=== PATIENT | female | born 1965 | race Caucasian/White ===

== ENCOUNTER 2019-12-21 13:04 | Observation (INO) ==
[2019-12-21] MEDS ORDERED: Ketorolac 30 MG/ML VIAL IVP ONE (13:34)
[2019-12-21] MEDS ORDERED: Ipratropium/Albuterol Neb 3 ML IH ONE (13:36)
[2019-12-21] MEDS ORDERED: cefTRIAXone 1,000 MG in 0.9 % Sodium Chloride Mini Bag 100 ML IVPB ONE (13:43)
[2019-12-21] MEDS ORDERED: Azithromycin 500 MG in 0.9 % Sodium Chloride 250 ML IVPB ONE (13:43)
[2019-12-21 14:02] LABS: Basophils % 0.3 %; Eosinophils # 0.1 K/mcL (0.0-0.6); Eosinophils % 0.9 %; Hematocrit 41.4 % (35.3-44.9); Hemoglobin 13.7 g/dL (11.5-15.4); Immature Granulocytes % 0.6 % (0-4); Mean Corpuscular HGB Conc 33.1 g/dL (31.6-35.5); Mean Corpuscular Volume 90.6 fL (83.0-100.0); Mean Platelet Volume 11.1 fL (9.4-12.4); Monocytes # 0.6 K/mcL (0.0-1.3); Neutrophils # 12.3 K/mcL (1.6-8.9); Platelet Count 320 K/mcL (140-400); Red Blood Count 4.57 M/mcL (3.82-4.97); Red Cell Distribution Width 13.3 % (11.5-14.5); Segmented Neutrophils % 87.2 %; White Blood Count 14.1 K/mcL (4.3-11.1)
[2019-12-21 14:22] LABS: Alanine Aminotransferase 18 Units/L (7-52); Albumin/Globulin Ratio 1.4 (1.1-2.2); Alkaline Phosphatase 52 Units/L (34-104); Aspartate Amino Transferase 15 Units/L (13-39); BUN/Creatinine Ratio 26 (6-26); Bilirubin,Total 0.3 mg/dL (0.3-1.0); Blood Urea Nitrogen 18 mg/dL (6-20); Calcium 9.2 mg/dL (8.6-10.3); Carbon Dioxide 27 mEq/L (23-29); Chloride 103 mEq/L (98-107); Globulin 2.8 g/dL (2.4-3.5); Glucose 121 mg/dL (70-105); Osmolality,Calculated 287 (280-300); Potassium 4.4 mEq/L (3.5-5.1); Sodium 137 mEq/L (136-145); Total Protein 6.8 g/dL (6.4-8.9); eGFR For African Americans > 60 (> 60); eGFR For Non-African Americans > 60 (> 60)
[2019-12-21] MEDS ORDERED: Naloxone 0.4 MG/ML INJ IVP PRN (15:45)
[2019-12-21] MEDS ORDERED: Mag Hydrox/Al Hydrox/Simeth 30 ML UDC PO PRN (15:50)
[2019-12-21] MEDS ORDERED: Ondansetron 4 MG/2 ML VIAL IVP PRN (15:50)
[2019-12-21] MEDS: 0.9 % Sodium Chloride 1,000 ML IV SCH (16:50)
[2019-12-21] MEDS: Acetaminophen 325 MG TABLET PO PRN (16:54)
[2019-12-21] MEDS: Ibuprofen 800 MG TABLET PO PRN (19:00)
[2019-12-21] MEDS: cloNIDine HCl 0.1 MG TABLET PO SCH (20:39)
[2019-12-21 23:59] LABS: Adenovirus Not Detected (Not Detect); Bordetella Pertussis Not Detected (Not Detect); Chlamydophila pneumoniae Not Detected (Not Detect); Coronavirus 229E Not Detected (Not Detect); Coronavirus HKU1 Not Detected (Not Detect); Coronavirus NL63 Not Detected (Not Detect); Coronavirus OC43 Not Detected (Not Detect); Human Metapneumovirus Not Detected (Not Detect); Human Rhinovirus/Enterovirus DETECTED (Not Detect); Influenza A Subtype 2009 H1 Not Detected (Not Detect); Influenza B Not Detected (Not Detect); Mycoplasma pneumoniae Not Detected (Not Detect); Parainfluenza Virus 1 Not Detected (Not Detect); Parainfluenza Virus 2 Not Detected (Not Detect); Parainfluenza Virus 3 Not Detected (Not Detect); Parainfluenza Virus 4 Not Detected (Not Detect); Respiratory Syncytial Virus Not Detected (Not Detect)
[2019-12-22] MEDS: Acetaminophen 325 MG TABLET PO PRN ×2 (00:48→15:43)
[2019-12-22] MEDS: 0.9 % Sodium Chloride 1,000 ML IV SCH (00:55)
[2019-12-22 06:21] LABS: Basophils % 0.4 %; Eosinophils # 0.9 K/mcL (0.0-0.6); Eosinophils % 8.4 %; Hematocrit 38.7 % (35.3-44.9); Hemoglobin 12.3 g/dL (11.5-15.4); Immature Granulocytes % 0.7 % (0-4); Lymphocytes # 1.2 K/mcL (0.6-4.6); Mean Corpuscular HGB Conc 31.8 g/dL (31.6-35.5); Mean Corpuscular Hemoglobin 29.4 pg (28.0-33.3); Mean Corpuscular Volume 92.4 fL (83.0-100.0); Mean Platelet Volume 11.8 fL (9.4-12.4); Monocytes # 0.6 K/mcL (0.0-1.3); Monocytes % 6.2 %; Neutrophils # 7.5 K/mcL (1.6-8.9); Platelet Count 280 K/mcL (140-400); Red Blood Count 4.19 M/mcL (3.82-4.97); Red Cell Distribution Width 13.4 % (11.5-14.5); Segmented Neutrophils % 72.3 %; White Blood Count 10.3 K/mcL (4.3-11.1)
[2019-12-22 07:59] LABS: BUN/Creatinine Ratio 20 (6-26); Blood Urea Nitrogen 12 mg/dL (6-20); Calcium 8.2 mg/dL (8.6-10.3); Carbon Dioxide 26 mEq/L (23-29); Chloride 103 mEq/L (98-107); Glucose 112 mg/dL (70-105); Osmolality,Calculated 285 (280-300); Potassium 4.1 mEq/L (3.5-5.1); Sodium 137 mEq/L (136-145); eGFR For African Americans > 60 (> 60); eGFR For Non-African Americans > 60 (> 60)
[2019-12-22] MEDS: Ipratropium/Albuterol Neb 3 ML IH PRN ×2 (08:59→15:04)
[2019-12-22] MEDS: Lactobacillus 1 EACH CAP.SPRINK PO SCH (09:04)
[2019-12-22] MEDS: cefTRIAXone 2,000 MG in Water for inj. (sterile) 20 ML IVPB SCH (09:05)
[2019-12-22] MEDS ORDERED: Azithromycin 500 MG in 0.9 % Sodium Chloride 250 ML IVPB SCH (14:00)
[2019-12-22] MEDS: Ibuprofen 800 MG TABLET PO PRN (16:41)
[2019-12-22] MEDS: cloNIDine HCl 0.1 MG TABLET PO SCH (20:57)
[2019-12-23] MEDS: Acetaminophen 325 MG TABLET PO PRN (05:12)
[2019-12-23 06:29] VITALS: BP 114/73
[2019-12-23 06:45] LABS: Mean Corpuscular HGB Conc 32.4 g/dL (31.6-35.5); Mean Corpuscular Hemoglobin 29.8 pg (28.0-33.3); Mean Corpuscular Volume 91.8 fL (83.0-100.0); Mean Platelet Volume 11.3 fL (9.4-12.4); Platelet Count 279 K/mcL (140-400); Red Blood Count 4.03 M/mcL (3.82-4.97); Red Cell Distribution Width 13.4 % (11.5-14.5); White Blood Count 7.6 K/mcL (4.3-11.1)
[2019-12-23 07:08] LABS: BUN/Creatinine Ratio 16 (6-26); Blood Urea Nitrogen 9 mg/dL (6-20); Calcium 8.3 mg/dL (8.6-10.3); Carbon Dioxide 31 mEq/L (23-29); Chloride 103 mEq/L (98-107); Glucose 101 mg/dL (70-105); Osmolality,Calculated 283 (280-300); Potassium 4.2 mEq/L (3.5-5.1); Sodium 137 mEq/L (136-145); eGFR For African Americans > 60 (> 60); eGFR For Non-African Americans > 60 (> 60)
[2019-12-23] MEDS: Ipratropium/Albuterol Neb 3 ML IH PRN (08:59)
[2019-12-23] MEDS: cefTRIAXone 2,000 MG in Water for inj. (sterile) 20 ML IVPB SCH ×2 (10:07→12:41)
[2019-12-23] MEDS: Lactobacillus 1 EACH CAP.SPRINK PO SCH (10:08)
[2019-12-23] MEDS ORDERED: cephALEXin 500 MG CAPSULE PO SCH (21:00)
[2019-12-24] MEDS ORDERED: predniSONE 20 MG TABLET PO SCH (09:00)
== END 2019-12-23 14:15 | disposition home or self-care (01) ==
LOC: EMEROOPIK 13:04 → INPPIK 13:04
PROVIDERS: ADMIT Family Medicine; ATTEND Family Medicine